=== PATIENT | male | born 1995 | race Caucasian/White ===

== ENCOUNTER 2019-02-26 12:07 | Emergency (ER) | payer OTHER ==
[~2019-02-26] VITALS: Ht 165.1 cm; Wt 52.2 kg
[2019-02-26 12:10] VITALS: BP_SYST 154
[2019-02-26] MEDS ORDERED: MAG HYDROX/AL HYDROX/SIMETH 30 ML, BELLADONNA ALKALOIDS/PHENOBARB 10 ML, LIDOCAINE VISC... PO ONE ×3 (12:45)
[2019-02-26 13:27] VITALS: BP_SYST 129
== END 2019-02-26 13:26 | disposition home or self-care (01) ==
LOC: SED 12:07
DX: F41.9 Anxiety disorder, unspecified (principal); R00.2 Palpitations; R03.0 Elevated blood-pressure reading, without diagnosis of hypertension
CPT/HCPCS: 93005; 99283; J2001; 99284

== ENCOUNTER 2019-07-12 18:53 | Emergency (ER) | payer OTHER ==
[~2019-07-12] VITALS: Ht 165.1 cm; Wt 53.5 kg
[2019-07-12 19:10] VITALS: BP_SYST 120
--- NOTE | 2019-07-12 19:10 | NUR ---
Patient to ER bed 6 to gown for evaluation. Side rails up.
--- NOTE | 2019-07-12 19:11 | NUR ---
Pt came to the ED for SOB which progressively got worse last night. Reports that he started his cpap a week ago for sleep apnea. Reports he was seen at his PCP earlier today and he was DX with a throat infection and low grade fever at 99.2. Current temperature in ED is 98.3, states he took ibuprofen at 1730. Denies n/v or diarrhea. No other complaints/injuries noted. Will cont. to monitor.
--- NOTE | 2019-07-12 19:15 | NUR ---
LYN Uribe at bedside examining patient.
[2019-07-12 19:32] VITALS: BP_SYST 120
--- NOTE | 2019-07-12 19:32 | NUR ---
Patient given written and verbal discharge instructions and verbalizes understanding. ER MD Dr. Uribe discussed with patient the results and treatment provided. Patient in stable condition. ID arm band removed. Patient educated on pain management and to follow up with PMD. Pain Scale 0/10. Opportunity for questions provided and answered. Medication side effect fact sheet provided.
== END 2019-07-12 19:32 | disposition home or self-care (01) ==
LOC: SED 18:53
DX: R06.02 Shortness of breath (principal); F12.90 Cannabis use, unspecified, uncomplicated; F41.9 Anxiety disorder, unspecified; J45.909 Unspecified asthma, uncomplicated
CPT/HCPCS: 71045; 99283

== ENCOUNTER 2020-09-30 06:08 | Emergency (ER) | payer OTHER ==
[~2020-09-30] VITALS: Ht 167.6 cm; Wt 53.5 kg
[2020-09-30 06:10] VITALS: BP_SYST 143
--- NOTE | 2020-09-30 06:10 | NUR ---
Placed in room 8 . Placed on monitoring specialist, blood pressure machine and pulse oximeter. To gown for exam. Side rails up. Report given to Bryanna BAUM.
--- NOTE | 2020-09-30 06:12 | NUR ---
ER DR. DURAN AT THE BEDSIDE EVALUATING PT
--- NOTE | 2020-09-30 06:20 | NUR ---
PT PRESENTS FROM HOME WITH C/O FEELING PALPITATIONS FOR ABOUT 10 MINUTES WHEN HE WOKE UP APPROX 1 HOUR PRIOR TO ARRIVAL. DENIES ANY CHEST PAIN. REPORTS HX OF ANXIETY, ASTHMA AND GERD. DENIES ANY CARDIAC HX. AAOX4, V/S STABLE
--- NOTE | 2020-09-30 06:36 | NUR ---
LAB AT THE BEDSIDE FOR BLOOD DRAW
[2020-09-30 06:56] LABS: CALCIUM 9.1 mg/dL (8.4-11.0); CREATININE 1.02 mg/dL (0.55-1.30); POTASSIUM 4.4 mmol/L (3.5-5.1)
[2020-09-30 07:02] LABS: ALBUMIN 4.2 g/dL (3.4-4.8); TOTAL BILIRUBIN 0.5 mg/dL (0.0-1.0)
[2020-09-30 07:03] LABS: BASOPHILS % (AUTO) 0.6 % (0.0-2.0); EOSINOPHILS # (AUTO) 0.2 K/uL (0.0-0.4); EOSINOPHILS % (AUTO) 2.2 % (0.0-4.0); HEMATOCRIT 44.9 % (36-54); HEMOGLOBIN 15.3 g/dL (14.0-18.0); LYMPHOCYTES # (AUTO) 2.4 K/uL (1.0-5.5); MEAN CORPUSCULAR HEMOGLOBIN 31 pg (27-31); MEAN CORPUSCULAR HGB CONC 34 % (32-36); MEAN CORPUSCULAR VOLUME 92 fL (79.0-98.0); MONOCYTES # (AUTO) 0.7 K/uL (0.0-1.0); MONOCYTES % (AUTO) 9.4 % (1.7-9.3); NEUTROPHILS # (AUTO) 3.8 K/uL (1.8-7.7); NEUTROPHILS % (AUTO) 53.8 % (40.0-70.0); PLATELET COUNT (AUTO) 297 K/uL (130-430); RED BLOOD CELL COUNT(AUTO) 4.87 MIL/uL (4.2-6.2); RED CELL DISTRIBUTION WIDTH 12.5 % (9.0-15.0)
--- NOTE | 2020-09-30 07:12 | NUR ---
REPORT GIVEN TO SARIKA GARVEY FOR CONTINUING CARE
--- NOTE | 2020-09-30 07:15 | NUR ---
Patient sitting up in [facility] Awake & alert.
--- NOTE | 2020-09-30 07:35 | NUR ---
Patient given written and verbal discharge instructions and verbalizes understanding. ER MD discussed with patient the results and treatment provided. Patient in stable condition. ID arm band removed. No Rx given. Patient educated on pain management and to follow up with PMD. Pain Scale 0/10. Opportunity for questions provided and answered. Medication side effect fact sheet provided.
[2020-09-30 07:45] VITALS: BP_SYST 143
== END 2020-09-30 07:45 | disposition home or self-care (01) ==
LOC: SED 06:08
DX: R00.2 Palpitations (principal); F41.9 Anxiety disorder, unspecified; I10 Essential (primary) hypertension; G47.30 Sleep apnea, unspecified; J45.909 Unspecified asthma, uncomplicated
CPT/HCPCS: 36415; 80053; 84484; 85025; 93005; 99284